=== PATIENT | male | born 1955 | race Caucasian/White ===

== ENCOUNTER → 2016-12-23 | Outpatient (CLI) | payer OTHER ==
[~2016-12-23] VITALS: Ht 182.9 cm; Wt 85.3 kg
[~2016-12-23] MED LIST: VITAMIN D1000 UNIT PO
--- NOTE | ~2016-12-23 | P ---
[facility] [place] [address] PROCEDURE REPORT Name: COLLIN FLEMING Room #: REG [facility] Kayla.#: [id number] Admission: 12/23/16 Attend Phys: Eric Howe Discharge: Date of : 59 Report #: [id number] THIS REPORT FOR: //name// CC: Eric Sesay MD DATE OF SERVICE: 12/23/2016 PROCEDURE PERFORMED: Colonoscopy with biopsies. HISTORY OF PRESENT ILLNESS: The patient is a 61-year-old male who presents today for a screening colonoscopy. No previous history of endoscopy. The patient denies any symptoms. No family history of colon cancer. DESCRIPTION OF PROCEDURE: The risks and benefits of the procedure were explained to the patient, those risks including but not limited to bleeding, perforation, the risk of sedation. He understood these risks and gave informed consent. Sedation was given using propofol per anesthesia. Next, a digital rectal exam was initially performed, which was normal. Next, using a standard Fujinon colonoscope, the scope was placed in the patient's anus and advanced under direct vision to the cecum. The overall prep was excellent. The cecum and ileocecal valve were normal in appearance. The ascending colon was normal. Diverticulosis was noted scattered throughout the transverse, descending, and sigmoid colon. Also, in the transverse colon was a 4 mm sessile polyp, this was removed with cold forceps. The rectal mucosa was normal. On retroflexion, small nonbleeding internal hemorrhoids were noted, otherwise normal colonoscopy. The scope was then withdrawn and the procedure terminated. The patient tolerated the procedure well. IMPRESSION: 1. Diverticulosis. 2. Small colon polyp. 3. Small internal hemorrhoids. 4. Otherwise, normal colonoscopy. RECOMMENDATIONS: Await biopsy results. If polyp is an adenomatous polyp, repeat in 5 years; if hyperplastic, repeat in 10 years. Thank you for allowing me to participate in his care. <ELECTRONICALLY SIGNED> By: Eric Gomez MD 12/24/16 [id number] Eric Gomez MD /nt
--- NOTE | ~2016-12-23 | S ---
[facility] [place] [address] SURGICAL PATH RPT PROCEDURE Name: COLLIN MANJARREZ Room #: REG CLAdilene M.Rohit.#: [id number] Admission: 12/23/16 Date of : 59 Discharge: Report #: [id number] Path Case #: [id number] PATHOLOGY REPORT COLLECTION DATE: 12/23/2016 RECEIVED DATE: 12/23/2016 SUBMITTING PHYS: Dr. Eric Gomez OTHER PHYS: Dr. Fritz Sesay SPECIMEN(S) RECEIVED: A.Transverse polyp * * * * * * * * * * * * FINAL DIAGNOSIS: Polyp, transverse polyp, endoscopic biopsy: - Tubular adenoma. - Negative for high grade dysplasia. (IUV:csd; d/t: 12/24/2016) PATHOLOGIST: Destiney Leon M.D. REPORT ELECTRONICALLY SIGNED BY: Destiney Leon M.D. DATE/TIME: 12/24/2016 15:20 * * * * * * * * * * * * GROSS PATHOLOGY: Received in formalin labeled "Collin Manjarrez, transverse polyp," are three segments of temple soft tissue measuring 0.7 x 0.7 x 0.2 cm in aggregate dimensions and ranging from 0.3 to 0.5 cm in maximum dimension. The specimen is submitted entirely in cassette A1. (CAA; 12/23/2016) CLINICAL HISTORY: None provided INITIAL CPT CODE(S): A; 14382 Professional services performed by [facility] at [facility] [place] [address] Technical services performed by [facility] at [address] [place] [address], [address], [place] [address]. [facility] [address] [place] [address] SURGICAL PATH RPT PROCEDURE Name: COLLIN MANJARREZ Room #: REG DAKOTAH Park#: [id number] Admission: 12/23/16 Date of : 59 Discharge: Report #: [id number] Path Case #: [id number] [facility] [address] [address] PHONE: [phone] DIRECTOR: Danny Vaughan M.D. * * * END OF REPORT * * *
== END ==
LOC: GI 08:04
DX: Z12.11 Encounter for screening for malignant neoplasm of colon (principal); D12.3 Benign neoplasm of transverse colon; K57.30 Diverticulosis of large intestine without perforation or abscess without bleeding; K64.8 Other hemorrhoids
CPT/HCPCS: 62110; 62900

== ENCOUNTER → 2021-01-04 | Outpatient (CLI) | payer OTHER | LOC: CAT 08:45 | PROVIDERS: ATTEND Family Medicine | DX: Z13.6 Encounter for screening for cardiovascular disorders (principal); I25.10 Atherosclerotic heart disease of native coronary artery without angina pectoris; E78.00 Pure hypercholesterolemia, unspecified ==